=== PATIENT | male | born 1985 | race Caucasian/White ===

== ENCOUNTER 2021-04-17 15:33 | Emergency (ER) | payer BC ==
[~2021-04-17] VITALS: Ht 185.4 cm; Wt 115.0 kg
[2021-04-17 15:50] VITALS: TEMP 97.8
[2021-04-17 16:43] LABS: BASO % 0.4 % (0.0-2.0); EOS # 0.1 K/mm3 (0.0-0.7); EOS % 1.4 % (0.0-4.0); GRAN % 62.1 % (42.2-75.2); HEMATOCRIT 45.6 % (42.0-52.0); HEMOGLOBIN 15.1 g/dl (13.5-18.0); LYMPH % 31.3 % (20.0-51.0); MEAN CELL VOLUME 86 fl (80.0-100.0); MEAN CORPUSCULAR HEMOGLOBIN 29 pg (27-31); MEAN CORPUSCULAR HGB CONC 33 g/dl (33.0-37.0); MEAN PLATELET VOLUME 8.9 fl (7.4-10.4); MONO # 0.5 K/mm3 (0.1-0.6); MONO % 4.6 % (1.7-9.3); PLATELET COUNT 323 K/mm3 (130-400); RED BLOOD COUNT 5.28 M/mm3 (4.20-5.60); REDCELL DISTRIBUTION WIDTH-CV 11.9 % (11.5-14.5)
[2021-04-17 17:05] LABS: ERYTHROCYTE SEDIMENTATION RATE 1 mm/hr (0-15)
[2021-04-17 17:09] LABS: ALBUMIN 4.6 gm/dL (3.5-5.0); C-REACTIVE PROTEIN 0.94 mg/dL (0.00-0.50); CALCIUM 10.1 mg/dL (8.4-10.2); CREATININE, serum 0.78 mg/dL (0.72-1.25); POTASSIUM 3.8 mmol/L (3.5-4.5); TOTAL PROTEIN 7.7 gm/dL (6.2-8.1)
[2021-04-17] MEDS ORDERED: CEPHALEXIN500 M1 PO (17:24)
[2021-04-17 17:41] VITALS: BP 145/91; PULSE 98
== END 2021-04-17 17:43 | disposition home or self-care (01) ==
LOC: COL.ER 15:33
PROVIDERS: Emergency Medicine
DX: M70.21 Olecranon bursitis, right elbow (principal); I10 Essential (primary) hypertension; Z87.891 Personal history of nicotine dependence